=== PATIENT | female | born 1970 ===

== ENCOUNTER → 2020-09-19 | Outpatient (CLI) | payer BC, MEDICAID ==
[2020-09-19 12:05] LABS: Potassium 3.8 mmol/L (3.5-5.1)
[2020-09-19 12:18] LABS: Albumin 3.2 g/dL (3.4-5.0); BUN/Creatinine Ratio 12.9; Bilirubin, Total 0.6 mg/dL (0.2-1.0); CRP High Sensitivity 1.41 mg/dL (< 0.3); Calcium 8.5 mg/dL (8.5-10.1); Total Protein 7.1 g/dL (6.4-8.2); Uric Acid 3.7 mg/dL (2.6-6.0)
== END | disposition home or self-care (01) ==
LOC: LAB 10:59
PROVIDERS: ATTEND Internal Medicine Nephrology
DX: I10 Essential (primary) hypertension (principal); M19.90 Unspecified osteoarthritis, unspecified site; E66.09 Other obesity due to excess calories
CPT/HCPCS: 36415; 80053; 80061; 84550; 85652; 86038; 86141; 86225

== ENCOUNTER → 2020-09-28 | Outpatient (CLI) | payer MEDICAID ==
[2020-09-28 11:06] LABS: Follicle Stimulating Hormone 1.55 IU/L (SEE BELOW); Leuteinizing Hormone 0.5 IU/L
== END | disposition home or self-care (01) ==
LOC: LAB 09:44
PROVIDERS: ATTEND Obstetrics & Gynecology
DX: N95.1 Menopausal and female climacteric states (principal); I10 Essential (primary) hypertension
CPT/HCPCS: 36415; 82670; 83001; 83002; 84403; 84443

== ENCOUNTER → 2020-11-02 | Outpatient (CLI) | payer BC, MEDICAID | END | disposition home or self-care (01) | LOC: US 09:03 | PROVIDERS: ATTEND Internal Medicine Nephrology | DX: N63.11 Unspecified lump in the right breast, upper outer quadrant (principal); Z98.890 Other specified postprocedural states; Z79.899 Other long term (current) drug therapy | CPT/HCPCS: 19083; 76642; 76942 ==